=== PATIENT | male | born 1950 | race Caucasian/White ===

== ENCOUNTER 2017-07-19 17:04 | Outpatient (CLI) | payer MEDICARE, BC ==
--- NOTE | 2017-07-20 14:12 | Ultrasound Report ---
EXAM: AORTIC DOPPLER ULTRASOUND EXAM DATE: 07/19/2017 05:37 PM. CLINICAL HISTORY: Encounter for screening. COMPARISON: None. TECHNIQUE: Real-time sonographic imaging of retroperitoneal vascular structures, including color-flow , Doppler flow and spectral analysis was performed by the hand tacker. Multiple route sales representative static images were saved for review. FINDINGS: Aorta: Upper abdominal aorta not well-seen due to bowel gas. Otherwise, the abdominal aorta was adequ ately visualized. No evidence for abdominal aortic aneurysm. Atheromatous plaques are noted in the ab dominal aorta. Aorta: Proximal: Sagittal AP: 2.0 cm. Mid: Transverse: 1.2 x 1.4 cm. Distal: Transverse: 1.4 x 1.4 cm. Caliber WNL: Yes. Plaque visualized: No. Iliacs: Right Iliac: Transverse: 0.92 x 0.92 cm. Left Iliac: Transverse: 1.1 x 1.2 cm. Iliac Vessels: The visualized proximal common iliac arteries are normal in caliber. Other: None. IMPRESSION: Normal. No abdominal aortic aneurysm. [facility] Referring Provider Line: [phone] SITE ID: [id number]
== END 2017-07-19 17:05 | disposition home or self-care (01) ==
LOC: DI 17:04
PROVIDERS: ATTEND Internal Medicine
DX: Z13.6 Encounter for screening for cardiovascular disorders (principal)
CPT/HCPCS: 76706

== ENCOUNTER 2019-03-29 13:13 | Emergency (ER) | payer MEDICARE, BC ==
[2019-03-29] MEDS ORDERED: ceFAZolin 1 GM VIAL IM STA (13:32)
[2019-03-29] MEDS ORDERED: TETANUS/DIPHTHERIA/PERTUSSIS 0.5 ML SYRINGE IM ONE (13:33)
--- NOTE | 2019-03-29 13:36 | ED Physician Documentation ---
PD HPI WOUND RECHECK - Stated complaint Stated Complaint: LEG WOUND - Chief complaint Chief Complaint: Wound - Histroy obtained from History obtained from: Patient - History of Present Illness Location: Left Lower Extremity (About 5 days ago he scraped his left leg on an exposed pipe at home. He got a scrape and a lump there. Subsequent to that over the last 2 days he has had increasing pain and redness spreading down from the site. No fevers or chills. Last tetanus is probably within the last 10 years but is not 100% sure on that.) Review of Systems Constitutional: denies: Fever, Chills GI: denies: Abdominal Pain, Nausea, Vomiting : reports: Reviewed and negative PD PAST MEDICAL HISTORY - Past Medical History Past Medical History: Yes Cardiovascular: Atrial fibrillation - Present Medications Home Medications: Ambulatory Orders Medication Instructions Recorded Confirmed Cephalexin [Keflex] 500 mg PO Q6H #40 capsule 03/29/19 Hydrocodone/Acetaminophen 1 - 2 each PO Q6H PRN #14 tablet 03/29/19 [Hydrocodon-Acetaminophen 5-325] Rivaroxaban [Xarelto] 20 mg PO DAILY 03/29/19 03/29/19 - Allergies Allergies/Adverse Reactions: Allergies Allergy/AdvReac Type Severity Reaction Status Date / Time No Known Drug Allergies Allergy Verified 03/29/19 13:16 - Social History Does the pt smoke?: No Smoking Status: Never smoker PD ED PE NORMAL - Vitals Vital signs reviewed: Yes - General General: Alert and oriented X 3, No acute distress - Extremities Extremities: Other (On the upper anterolateral left lower leg there is a hematoma measuring about 4 cm around. On ultrasound its at least a centimeter deep to the skin. There is no overlying abrasion, but that is quite shallow and does not look like it would have communicated with a hematoma at all. There is some cellulitis going down towards the ankle from narrow and bruising. Passive range of motion of the calf and leg are painless. There is no crepitance. Pain is not out of proportion to examination.) - Neuro Neuro: Alert and oriented X 3, Normal speech Results - Vitals Vitals: Vital Signs - 24 hr 03/29/19 13:16 Temperature 36.8 C Heart Rate 84 Respiratory 16 Rate Blood Pressure 136/74 H O2 Saturation 99 Oxygen O2 Source Room air PD MEDICAL DECISION MAKING - ED course ED course: 68-year-old gentleman with a hematoma and abrasion now with cellulitis of the left leg. No clinical signs of necrotizing infection. He is administered IM Ancef and tetanus is updated. The hematoma does not look like it ever communicated with the skin, so I doubt the hematoma itself is infected. Departure - Departure Disposition: 01 Home, Self Care Clinical Impression: Left leg cellulitis Hematoma of left lower extremity Qualifiers: Encounter type: initial encounter Qualified Code(s): S80.12XA - Contusion of left lower leg, initial encounter Condition: Good Record reviewed to determine appropriate education?: Yes Instructions: Cellulitis Dc Prescriptions: Cephalexin [Keflex] 500 mg PO Q6H #40 capsule Hydrocodone/Acetaminophen [Hydrocodon-Acetaminophen 5-325] 1 - 2 each PO Q6H PRN #14 tablet PRN Reason: pain Comments: Return immediately if you develop intolerable pain, shaking chills or fevers, or if redness worsens significantly. Recheck with your doctor in 2 days regardless. Your blood pressure was elevated today on check into the emergency department. This does not mean that you have hypertension, it is a common phenomenon to come to the emergency department and have elevated blood pressure. I recommend that you see your primary care physician within the week to have it rechecked when you are feeling better. Do not drink or drive while taking narcotic pain medication. Note that many narcotic pain relievers also contain Tylenol/acetaminophen. Please ensure that your total dose of acetaminophen from all sources does not exceed 3 g (3000 mg) per day. You may get constipated while on this medication. Take a stool softener such as Colace twice a day while you are on it. Also add an [id number] laxative such as senna or MiraLAX on any day that you do not have a bowel movement. If you received a narcotic pain medication or sedative while in the emergency department, do not drive for the next 24 hours.
[2019-03-29 14:07] VITALS: BP 145/78
== END 2019-03-29 14:06 | disposition home or self-care (01) ==
LOC: ED 13:13
DX: L03.116 Cellulitis of left lower limb (principal); S80.12XA Contusion of left lower leg, initial encounter; W22.8XXA Striking against or struck by other objects, initial encounter; Y92.009 Unspecified place in unspecified non-institutional (private) residence as the place of occurrence of the external cause; R03.0 Elevated blood-pressure reading, without diagnosis of hypertension
CPT/HCPCS: 90471; 96372; 99283

== ENCOUNTER 2020-01-21 11:15 | Outpatient (CLI) | payer MEDICARE, BC | END 2020-01-21 11:16 | disposition EMS.NT | LOC: EMS 11:15 | PROVIDERS: ATTEND Surgery | DX: Z03.89 Encounter for observation for other suspected diseases and conditions ruled out (principal) ==

== ENCOUNTER 2023-04-02 08:02 | Outpatient (CLI) | payer MEDICARE, BC ==
[2023-04-02 08:30] LABS: CALCIUM 10.1 mg/dL (8.5-10.3); CREATININE 1.1 mg/dL (0.6-1.3); POTASSIUM 4.1 mmol/L (3.5-4.5)
== END 2023-04-02 08:03 | disposition home or self-care (01) ==
LOC: LAB 08:02
PROVIDERS: ATTEND Internal Medicine
DX: I48.4 Atypical atrial flutter (principal)
CPT/HCPCS: 36415; 80048